=== PATIENT | female | born 1945 | race Caucasian/White ===

== ENCOUNTER 2019-07-17 18:22 | Inpatient (IN) ==
[2019-07-17 19:32] LABS: WBC 13.07 X1000 (4.8-10.8)
[2019-07-17 19:33] LABS: BASO# 0.02 X1000 (0.0-0.2); BASO% 0.2 % (0.0-0.8); EOS# 0.01 X1000 (0.0-0.7); EOS% 0.1 % (0.0-10.0); HEMATOCRIT 40.7 % (37.0-47.0); HEMOGLOBIN 13.8 g/dL (12.0-16.0); IMM GRAN# 0.03 X1000 (0.0-0.04); IMM GRAN% 0.2 % (0.0-0.5); LYMPH# 1.06 X1000 (1.2-3.4); LYMPH% 8.1 % (20.5-51.1); MCH 30.9 PG (27-31); MCHC 33.9 g/dL (33-37); MCV 91.1 FL (81-99); MONO# 0.64 X1000 (0.11-0.59); MONO% 4.9 % (1.7-9.3); NEUT# 11.31 X1000 (1.4-6.5); NEUT% 86.5 % (42.2-75.2); PLT 203 X1000 (130-400); RBC 4.47 XMIL (4.2-5.4); RDW 12.5 % (11.5-14.5)
[2019-07-17 19:37] LABS: INR 1.09; PROTIME 14.3 Seconds (11.0-16.0)
--- NOTE | 2019-07-17 19:37 | Diag Imaging Result Doc PS360 ---
EXAM: XRAY HIP UNILATERAL RT INDICATION: fall, pain, immobility TECHNIQUE: 2 views COMPARISON: None. FINDINGS: There is a linear lucency in the intertrochanteric region suggesting a nondisplaced intertrochanteric fracture. No other discrete fracture or dislocation is identified. There are mild degenerative changes at the right hip. The surrounding soft tissues are essentially unremarkable. IMPRESSION: Nondisplaced intertrochanteric fracture as described. Electronically signed by Wood Ramirez 07/17/2019 7:34 PM
--- NOTE | 2019-07-17 19:38 | Diag Imaging Result Doc PS360 ---
EXAM: CHEST-1 VIEW INDICATION: pre-op ? hip fx TECHNIQUE: One view COMPARISON: None. FINDINGS: The lungs appear hyperinflated suggesting COPD. There is mild chronic appearing interstitial thickening bilaterally. The lungs are grossly clear, otherwise. There is no discrete pleural fluid collection or pneumothorax. The cardiomediastinal silhouette and central vasculature are grossly unremarkable. IMPRESSION: Suggestion of COPD and mild interstitial fibrotic change. No definite acute chest pathology. Electronically signed by Wood Ramirez 07/17/2019 7:36 PM
[2019-07-17 19:50] LABS: BANDS 3 % (0-1); LYMPHS 13 % (21-51); MONO 2 % (1-9); SEGS 82 % (42-75)
[2019-07-17] MEDS ORDERED: NORCO-5 PO ONE (19:51)
[2019-07-17 20:16] LABS: AGAP 10; ALB/GLOB RATIO 1.5; ALBUMIN 4.1 g/dL (3.5-5.0); ALKALINE PHOSPHATASE 62 U/L (32-104); BUN 10 mg/dL (8-22); CHLORIDE 97 mmol/L (98-107); COSMO 266; CREATININE 0.5 mg/dL (0.5-0.9); ESTIMATED GFR > 60; GLUCOSE 112 mg/dL (70-104); GOT 14 U/L (10-30); GPT 9 U/L (10-36); POTASSIUM 3.3 mmol/L (3.5-5.1); SODIUM 133 mmol/L (136-145); TCO2 26 mmol/L (25-35); TOTAL BILIRUBIN 0.29 mg/dL (0.20-1.00); TOTAL PROTEIN 6.8 g/dL (6.3-8.3)
--- NOTE | 2019-07-17 22:21 | HISTORY AND PHYSICAL ---
PRIMARY CARE PHYSICIAN: None. CHIEF COMPLAINT: Fall. Right hip pain. HISTORY OF PRESENTING ILLNESS: A 73-year-old female without any significant past medical history presented to the emergency department after patient tripped over coffee table and landed on the floor. She states that she hurt her right hip region. She was brought to the emergency department. She had imaging done which did show a right hip intertrochanteric fracture. Her case was discussed with Orthopedics who recommended admission for further management. At the time of my examination, patient denied any headache, fever, chills, chest pain, shortness of breath, hemoptysis but complained of right hip pain. PAST MEDICAL HISTORY: None. PAST SURGICAL HISTORY: Back surgery, hysterectomy, ALLERGIES: No known drug allergies. CURRENT MEDICATIONS: She does not recall. Nursing staff will reconcile. SOCIAL HISTORY: Fifty pack years history of smoking. No history of alcohol or illicit drug use. FAMILY HISTORY: Positive coronary disease mother. REVIEW OF SYSTEMS: Fourteen point review of systems is as in HPI. Other systems negative. PHYSICAL EXAMINATION: GENERAL: Cooperative, friendly female. She is resting more comfortably now. VITAL SIGNS: Temperature 98.2 degrees, pulse 92, respirations 20, blood pressure 160/76. HEENT: Extraocular movements intact. PERRLA. NECK: No masses. CHEST: Clear to auscultation. CARDIOVASCULAR: Regular rate and rhythm. ABDOMEN: Soft. Positive bowel sounds. EXTREMITY: Right hip tenderness. NEUROLOGIC: She is awake, alert, oriented x3. : No bladder distention. SKIN: Warm. LABORATORIES AND STUDIES: WBC 13.07, hemoglobin 13.8, hematocrit 40.7, platelets 203,000. Sodium 133, , CO2 is 20, BUN is 10, creatinine 0.5, glucose is 112. Hip x-ray shows nondisplaced intertrochanteric fracture of the right hip. ASSESSMENT: This is a 73-year-old female without any significant past medical history who presented to emergency department after she tripped over coffee table and landed on the floor on the right hip region. She was evaluated in the emergency department. She had imaging done which did show a right hip intertrochanteric fracture. Case was discussed with Orthopedics who recommended admission for further management. 1. Right hip intertrochanteric fracture status post mechanical fall. 2. Ongoing tobacco abuse. PLAN: 1. We will admit patient to medical floor with telemetry. 2. Keep patient NPO. Continue with pain control, antiemetics and gentle hydration. 3. We will consult Orthopedics. 4. Counseled patient extensively on smoking cessation. 5. Put patient on DVT prophylaxis SCD. 6. We will continue to follow and reassess. Make further recommendation based on patient's clinical course. cc: Alec Reza MD MTDD
[2019-07-17] MEDS: DILAUDID IV PRN (22:35)
--- NOTE | 2019-07-17 23:27 | EKG Report ---
Test Performed on : 07/17/2019 9:08:24 PM Test Reason : pre-op Blood Pressure : / mmHG Vent. Rate : 091 BPM Atrial Rate : 091 BPM P-R Int : 146 ms QRS Dur : 072 ms QT Int : 376 ms P-R-T Axes : 085 066 073 degrees QTc Int : 462 ms Normal sinus rhythm. Normal ECG No previous ECGs available Confirmed by Navjot PETER, Martín Simeon ([id number]) on 07/18/2019 9:42:32 PM
[2019-07-17 23:35] LABS: URINE SOURCE CATH
--- NOTE | 2019-07-17 23:39 | ORTHOPAEDICS CONSULTATION ---
DATE: 07/17/2019 CHIEF COMPLAINT: Right hip pain. HISTORY: Patient is a pleasant, 73-year-old female who is status post fall while at home earlier today. Patient reports she tripped over a coffee table and landed on the floor. [place] immediate pain and discomfort in her right hip. She presented to the emergency room. X-rays were obtained, reveal right intertrochanteric femur fracture. She denies loss of conscious. ALLERGIES: No known drug allergies. PAST MEDICAL HISTORY: None. PAST SURGICAL HISTORY: Back surgery and hysterectomy. PHYSICAL EXAMINATION: General: Patient is awake, alert, and cooperative with exam. Musculoskeletal: Her cervical spine is nontender to palpation. Bilateral upper extremities nontender to palpation. Nontender range of motion. Her right lower extremity is externally rotated and has tenderness to palpation along the hip. Tenderness to gentle movement. Her calf is soft. She has active dorsiflexion, plantar flexion. The left lower extremity has no palpable deformity and no significant discomfort with gentle movement. IMAGING: X-rays were reviewed and reveal a right intertrochanteric femur fracture. IMPRESSION: Right intertrochanteric femur fracture. PLAN: At this point, I discussed treatment options with the patient and family. At this time, would recommend to proceed with intramedullary nailing right femur. Risks and benefits of surgery explained, including risks of anesthesia, , bleeding, infection, failure to relieve pain, postoperative stiffness, nerve injury, blood clots, and other imponderables. All questions are answered. The patient and family agree with treatment plan. Will plan on proceeding with surgery tomorrow. cc: Endy Paz MD
[2019-07-18 00:52] LABS: BILIRUBIN URINE NEGATIVE (NEGATIVE); BLOOD URINE TRACE (NEGATIVE); COLOR YELLOW; GLUCOSE URINE NEGATIVE (NEGATIVE); KETONE URINE TRACE mg/dL (NEGATIVE); LEUKOCYTES URINE NEGATIVE (NEGATIVE); NITRITE URINE NEGATIVE (NEGATIVE); PROTEIN URINE TRACE mg/dL (NEGATIVE); SP GRAVITY URINE 1.017; TURBIDITY URINE CLEAR (CLEAR); UR EPITHELIAL CELLS <10 /HPF (<10); URINE BACTERIA NEGATIVE /HPF; URINE RBC <10 /HPF (<10); URINE WBC <10 /HPF (<10); UROBILINOGEN URINE 2 mg/dL (NORMAL)
[2019-07-18] MEDS: ZOFRAN IV PRN ×3 (04:29→15:51)
[2019-07-18] MEDS: DILAUDID IV PRN (05:51)
[2019-07-18 05:55] LABS: BASO# 0.01 X1000 (0.0-0.2); BASO% 0.1 % (0.0-0.8); HEMATOCRIT 38.7 % (37.0-47.0); HEMOGLOBIN 12.7 g/dL (12.0-16.0); LYMPH# 1.13 X1000 (1.2-3.4); LYMPH% 12.5 % (20.5-51.1); MCH 30.2 PG (27-31); MCHC 32.8 g/dL (33-37); MCV 92.1 FL (81-99); MONO# 1.01 X1000 (0.11-0.59); MONO% 11.1 % (1.7-9.3); NEUT# 6.92 X1000 (1.4-6.5); NEUT% 76.3 % (42.2-75.2); PLT 184 X1000 (130-400); RDW 12.5 % (11.5-14.5); WBC 9.07 X1000 (4.8-10.8)
[2019-07-18 06:43] LABS: AGAP 9; BUN 13 mg/dL (8-22); CALCIUM 8.8 mg/dL (8.8-10.2); CHLORIDE 98 mmol/L (98-107); COSMO 272; CREATININE 0.6 mg/dL (0.5-0.9); ESTIMATED GFR > 60; GLUCOSE 131 mg/dL (70-104); POTASSIUM 4.7 mmol/L (3.5-5.1); SODIUM 135 mmol/L (136-145); TCO2 28 mmol/L (25-35)
[2019-07-18] MEDS ORDERED: XYLOCAINE-MPF 2% ONE (07:28)
[2019-07-18] MEDS ORDERED: ROBINUL ONE (07:28)
[2019-07-18] MEDS ORDERED: DIPRIVAN 1% ONE (07:30)
[2019-07-18] MEDS ORDERED: ZOFRAN ONE (07:30)
[2019-07-18] MEDS ORDERED: PEPCID ONE ×2 (07:35→07:37)
[2019-07-18] MEDS ORDERED: KEFZOL 1 GM/D5W 1 GM/50 ML IVPB ONE (07:41)
[2019-07-18] MEDS ORDERED: EPHEDRINE ONE (07:58)
[2019-07-18] MEDS ORDERED: SODIUM CHLORIDE 0.9% 10 ML ONE (07:58)
[2019-07-18 08:16] LABS: HEMOGLOBIN A1C 4.9 % (4.8-6.0)
--- NOTE | 2019-07-18 08:49 | EKG Report ---
Test Performed on : 07/18/2019 04:25:42 AM Test Reason : No order in [place] Blood Pressure : / mmHG Vent. Rate : 096 BPM Atrial Rate : 096 BPM P-R Int : 138 ms QRS Dur : 070 ms QT Int : 340 ms P-R-T Axes : 074 066 076 degrees QTc Int : 429 ms Normal sinus rhythm. with sinus arrhythmia. Septal infarct , age undetermined Abnormal ECG When compared with ECG of 17-JUL-2019 21:08, (Unconfirmed) No significant change was found Confirmed by Navjot PETER, Martín Simeon ([id number]) on 07/20/2019 11:05:19 PM
--- NOTE | 2019-07-18 09:27 | OPERATIVE NOTE ---
PROCEDURE DATE: 07/17/2019 PREOPERATIVE DIAGNOSIS: Right intertrochanteric femur fracture. POSTOPERATIVE DIAGNOSIS: Right intertrochanteric femur fracture. PROCEDURE PERFORMED: Intramedullary nailing of the right femur with a Synthes 11 x 320 mm TFN nail. SURGEON: Endy Paz MD. ANESTHESIA: Spinal. IV FLUIDS: Lactated Ringer's 1000 mL. ESTIMATED BLOOD LOSS: 125 mL. COMPLICATIONS: None. INDICATION: The patient is pleasant, 73-year-old female who is 1 day status post fall while at home. She presented to the emergency room. X-rays revealed a radiolucent line along the intertrochanteric region, consistent with a fracture. Given patient's findings, recommendation to proceed with intramedullary nailing was offered. Risks and benefits of surgery were explained including the risks of anesthesia, , bleeding, infection, failure to relieve pain, postoperative stiffness, nerve injury, blood clots, and other imponderables. All questions were answered. Patient and family wished to proceed with surgery. DETAILS OF OPERATION: The patient was taken to the operating room and placed supine on the operating table. After adequate spinal anesthesia was obtained, she placed supine on the fracture table. After confirming good alignment, the right lower extremity was subsequently prepped and draped in the usual sterile fashion. Approximately 3 fingerbreadths proximal to the greater trochanter, a lateral incision was made. Careful dissection was performed through the superficial fascia. Dissection was performed with the Phillips scissors down to the tip of the greater trochanter. A guide pin was then placed along the tip of the greater trochanter and advanced into the intramedullary canal. Had good position in both AP and lateral projections. A starting reamer was then passed. A ball-tip guide pin was then advanced in the intramedullary canal. The length of the nail was determined to be 320 mL. Sequential reaming was conducted up to size 12 mm in preparation for 11 mm diameter nail. An 11 x 320 mm Synthes TFN nail was then advanced. The ball-tipped guide pin was removed. Using the outrigger guide, a guide was placed in the lateral proximal femur. Guide pin was then advanced across the fracture site, in the femoral neck and head. Had good position, confirmed with C-arm visualization. After this had been performed, the lateral cortex was reamed. After confirming good positioning in both AP and lateral projections, the lateral cortex was reamed. An 80 mm helical blade was then advanced. The proximal setscrew was tightened in standard fashion. Using perfect jena technique, one distal locking screw was placed from medial and lateral. The final C-arm visualization showed good alignment of the fracture and good position of the hardware. Wounds were copiously irrigated. Number 1 Vicryl was used to repair the deep fascia in the proximal wound, followed by 2-0 Vicryl in the two proximal wounds, and skin saul in all the wounds. Adaptic, sterile 4 x 4s, ABD pad, and tape were applied to the right lower extremity. Patient tolerated the procedure well and was transferred to the recovery room in stable condition. cc: Endy Paz MD
[2019-07-18] MEDS ORDERED: NS 1,000 ML IV SCH ×2 (13:00)
--- NOTE | 2019-07-18 13:05 | PROGRESS NOTE ---
DATE: 07/18/2019 INTERVAL HISTORY: Patient is status post surgical repair of right hip fracture. Doing well postop. Pain well controlled. No new complaints. No other acute events. REVIEW OF SYSTEMS: Twelve point review of systems negative except as per interval history. LABS: WBC 9.0, hemoglobin 12.7, hematocrit 38.7, platelets 184,000. Sodium 135, initial potassium 3.3, repeat potassium 4.7, glucose 131. VITALS: T-max 98.3 degrees, pulse 95, blood pressure 110/53, O2 saturation 100% on 4 L by nasal cannula. PHYSICAL EXAMINATION: General: No acute distress. Vitals: As above. HEENT: Normocephalic, atraumatic. Moist mucous membranes. No cervical adenopathy. Cardiovascular: Regular rate and rhythm. No murmurs noted. Pulmonary: Clear to auscultation bilaterally. No wheezing, rales, or rhonchi. Abdomen: Soft, nontender, nondistended. Bowel sounds positive. Extremities: Peripheral pulses intact. Right hip bandaged. Neurologic: Cranial nerves grossly intact. No focal deficits found. Psychiatric: Awake, alert, oriented x3. Normal mood and affect. Skin: Bandaged as above. No new rashes or lesions identified. ASSESSMENT AND PLAN: 1. Right hip fracture status post surgical repair by Dr. Paz. Doing well postop. Had low normal O2 sats postop, which were likely anesthesia related. If they continue, we will check a chest x-ray. The patient asymptomatic and lungs sound good. 2. Tobacco abuse. Patient counseled on cessation. 3. Hyponatremia, improving with fluids. Continue IV fluids. 4. Hyponatremia, improved this morning. Continue to monitor and replete as needed. 5. Disposition likely to rehab once bed is obtained.
[2019-07-18] MEDS ORDERED: MORPHINE IV PRN (13:18)
[2019-07-18] MEDS ORDERED: MILK OF MAGNESIA PO PRN (13:18)
[2019-07-18] MEDS ORDERED: OXY IR PO PRN (13:18)
[2019-07-18] MEDS ORDERED: ZOFRAN IV PRN (13:18)
[2019-07-18] MEDS ORDERED: HALDOL IV PRN (13:30)
[2019-07-18] MEDS: TYLENOL PO SCH ×2 (14:00→21:15)
[2019-07-18] MEDS: NS 1,000 ML IV SCH (14:03)
[2019-07-18] MEDS: KEFZOL 1 GM/D5W 1 GM/50 ML IVPB IV SCH (18:10)
[2019-07-18] MEDS: PERIDEX MT SCH (21:15)
[2019-07-18] MEDS: COLACE PO SCH (21:15)
[2019-07-19] MEDS: KEFZOL 1 GM/D5W 1 GM/50 ML IVPB IV SCH (00:35)
[2019-07-19] MEDS: NS 1,000 ML IV SCH (00:36)
[2019-07-19] MEDS: TYLENOL PO SCH ×3 (06:01→20:20)
[2019-07-19] MEDS: XARELTO PO SCH (06:01)
--- NOTE | 2019-07-19 06:53 | ORTHOPAEDICS PROGRESS NOTE ---
DATE: 07/19/2019 SUBJECTIVE: Patient is a 73-year-old female who is 1 day status post intramedullary nailing of the right femur. She is currently resting comfortably. PHYSICAL EXAMINATION: The patient's right lower extremity dressing is intact. Calf is soft. She has active dorsiflexion plantar flexion. She is neurovascularly intact distally. Her labs are pending. IMPRESSION: Postoperative day #1 status post intramedullary nailing of the right femur. PLAN: At this point, the patient we will begin physical therapy with weightbearing as tolerated right lower extremity. Consult adoption social worker for discharge planning. Patient is considering home physical therapy. Will monitor her progress with physical therapy. cc: Endy Paz MD MTDD
[2019-07-19 07:14] LABS: HEMATOCRIT 28.6 % (37.0-47.0); HEMOGLOBIN 9.5 g/dL (12.0-16.0)
[2019-07-19 07:27] LABS: AGAP 7; BUN 7 mg/dL (8-22); CALCIUM 8.8 mg/dL (8.8-10.2); CHLORIDE 100 mmol/L (98-107); COSMO 270; CREATININE 0.4 mg/dL (0.5-0.9); ESTIMATED GFR > 60; GLUCOSE 129 mg/dL (70-104); POTASSIUM 4.7 mmol/L (3.5-5.1); SODIUM 135 mmol/L (136-145); TCO2 28 mmol/L (25-35)
[2019-07-19] MEDS: FERROUS SULFATE PO SCH (10:55)
[2019-07-19] MEDS: PERIDEX MT SCH ×2 (10:55→20:21)
--- NOTE | 2019-07-19 12:09 | PROGRESS NOTE ---
DATE: 07/19/2019 INTERVAL HISTORY: The patient doing well postop. Pain reasonably well controlled. No new complaints. No acute events overnight. REVIEW OF SYSTEMS: Twelve point review of systems negative except as per interval history. LABORATORY: Hemoglobin 9.5, hematocrit 28.6, sodium 135, potassium 4.7, BUN 7, creatinine 0.4, glucose 107 and 129. OBJECTIVE: General: No acute distress. Vitals: As above. HEENT: Normocephalic, atraumatic. Moist mucous membranes. No cervical adenopathy. Cardiovascular: Regular rate and rhythm. No murmurs noted. Pulmonary: Clear to auscultation bilaterally. No wheezing, rales, or rhonchi. Abdomen: Soft, nontender, and nondistended. Bowel sounds positive. Extremities: Peripheral pulses intact. No clubbing or cyanosis. Right hip incisions bandaged. Bandage is clean, dry, intact. Neurologic: Cranial nerves grossly intact. No focal deficits. Psychiatric: Normal mood and affect. Awake, alert, and oriented x3. Skin: No new rashes or lesions identified. Surgical incision bandaged as above. ASSESSMENT AND PLAN: 1. Right hip fracture. The patient is status post surgical repair by Dr. Paz. Doing well postop. Minimal low normal O2 saturations postop, but this has not been repeated. The patient asymptomatic. 2. Tobacco abuse. Patient counseled on cessation. 3. Hyponatremia, minimal and stable. No need for further intervention. 4. Hypokalemia, improved. Monitor. 5. Anemia likely related to expected blood loss during surgery. We will monitor but no need for transfusion currently.
[2019-07-19] MEDS: COLACE PO SCH (20:21)
[2019-07-20] MEDS: TYLENOL PO SCH ×4 (01:18→21:53)
[2019-07-20] MEDS: NS 1,000 ML IV SCH ×2 (01:18→01:19)
[2019-07-20] MEDS: XARELTO PO SCH (05:10)
[2019-07-20 07:05] LABS: HEMATOCRIT 27.3 % (37.0-47.0); HEMOGLOBIN 8.9 g/dL (12.0-16.0)
--- NOTE | 2019-07-20 07:38 | ORTHOPAEDICS PROGRESS NOTE ---
DATE: 07/20/2019 SUBJECTIVE: Ms. Walters is a 73-year-old female who is day 2 status post intramedullary nailing of the right femur. She is currently resting comfortably in bed and is requesting her breakfast. She has no complaints at this time. She states that her pain is currently a 2/10 and that she has not had any problems. Patient states she did well with physical therapy yesterday and walked around the [place] without any complaints of pain. OBJECTIVE: Ms. Walters' dressings are intact on her right lower extremity. I changed these myself this morning and she had no active drainage from the site and no surrounding redness or warmth to suggest a secondary infection at this time. Her calf is soft and she has active dorsiflexion and plantar flexion of her right foot. Sensation is intact to her toes and she was neurovascularly intact distally. She is currently wearing her RAUL hose. LABS: The only labs that are back on her this morning are her H and H which are 8.9 and 27.3. This is a small drop from yesterday of 9.5 and 28.6. Hospitalist is following. IMPRESSION: Postoperative day #2 status post intramedullary nailing of the right femur. PLAN: At this point, Ms. Walters will continue physical therapy with weightbearing as tolerated on her right lower extremity. Paper Plate Machine Tender has already been consulted for discharge planning. She did have a moment of possible atrial fibrillation on telemetry last night and the hospitalist has been made aware of this. This will most likely have to be investigated further prior to discharge home. She is doing well from an Orthopedic standpoint at this point in time. Dictated by BERNARDO Verdin for Endy Paz MD cc: Endy Paz MD [facility]
[2019-07-20] MEDS: PERIDEX MT SCH ×2 (08:28→21:52)
[2019-07-20] MEDS: FERROUS SULFATE PO SCH (08:28)
[2019-07-20 09:12] LABS: AGAP 6; BUN 8 mg/dL (8-22); CALCIUM 8.3 mg/dL (8.8-10.2); CHLORIDE 96 mmol/L (98-107); COSMO 263; CREATININE 0.5 mg/dL (0.5-0.9); ESTIMATED GFR > 60; GLUCOSE 95 mg/dL (70-104); MAGNESIUM 1.5 mg/dL (1.5-2.7); POTASSIUM 3.6 mmol/L (3.5-5.1); SODIUM 132 mmol/L (136-145); TCO2 30 mmol/L (25-35)
--- NOTE | 2019-07-20 09:26 | EKG Report ---
Test Performed on : 07/20/2019 08:52:27 AM Test Reason : afib with RVR Blood Pressure : / mmHG Vent. Rate : 101 BPM Atrial Rate : 101 BPM P-R Int : 130 ms QRS Dur : 070 ms QT Int : 332 ms P-R-T Axes : 084 062 061 degrees QTc Int : 430 ms Sinus tachycardia. Nonspecific T wave abnormality Abnormal ECG When compared with ECG of 18-JUL-2019 04:25, (Unconfirmed) Criteria for Septal infarct are no longer present Nonspecific T wave abnormality now evident in Inferior leads Confirmed by Martín Morfin MD ([id number]) on 07/20/2019 11:09:04 PM
--- NOTE | 2019-07-20 09:36 | Diag Imaging Result Doc PS360 ---
EXAM: CHEST-2 VIEWS HISTORY: copd/afib TECHNIQUE: Two views COMPARISON: 07/17/2019 FINDINGS: The lungs are hyperexpanded. The heart is not enlarged. The vessels are small. There are mild increased markings in the left costophrenic angle. No pleural effusions. IMPRESSION: 1.Severe emphysema 2.Atelectasis versus a tiny infiltrate in the left costophrenic angle Electronically signed by Duong Manuel 07/20/2019 9:34 AM
[2019-07-20] MEDS ORDERED: MAGNESIUM SULFATE 2 GM/S.W.I. 2 GM/50 ML IVPB IV ONE (10:13)
--- NOTE | 2019-07-20 10:49 | PROGRESS NOTE ---
DATE: 07/20/2019 SUBJECTIVE: This morning, Ms. Walters refers to be doing well. Denies any complaint, except for mild pain in the right hip, where she had surgery. I was called early on this morning by the attending nurse that Ms. Walters had been in and out of atrial fibrillation, and that telemetry had called, suggesting that her rhythm was atrial fibrillation. We did an EKG stat, which I have looked at it and it is actually a sinus rhythm with some sinus arrhythmias. Ms. Walters is completely asymptomatic. Her current telemonitoring tracing is normal sinus with occasional sinus arrhythmia. OBJECTIVE: Current Vital Signs: Blood pressure is 132/72, pulse of 92, respirations 18, temperature 98.7 degrees, the patient is saturating 96% on room air. General: Ms. Walters is a 73-year-old female. She is in bed. She is not in any cardiopulmonary distress. HEENT: Mucosa is pink and moist. Anicteric. Acyanotic. Neck: Supple. No JVD. Chest: Air entry is bilaterally reduced. There are no crepitations, no rhonchi. Cardiovascular: Regular rate and rhythm. No murmurs. Abdomen: Soft, nontender. Extremities: No pedal edema. AUTOMOBILE BODY REPAIRER HELPER: The patient is awake, alert, and oriented. Musculoskeletal: The right hip continues to be covered. Per the orthopedic documentation, it looks like the wound is clean with no draining. IMAGING AND LABORATORY DATA: Hemoglobin is 8.9. The patient's current chemistry is unremarkable, except for sodium of 132. Magnesium is 1.5, which has been replaced. The patient's TSH is 1.98. As I said, an EKG just shows normal sinus rhythm with occasional sinus arrhythmias. A chest x-ray this morning shows severe emphysema, atelectasis versus a tiny infiltrate in the left costophrenic angle. The patient is currently afebrile and asymptomatic. MEDICATIONS: I have reviewed her current medications. No changes. Will discontinue the normal saline. ASSESSMENT: 1. Status post mechanical fall, resulting into a right hip nondisplaced intertrochanteric fracture. The patient is status post intramedullary nailing of the right femur. Today is day 3 postoperatively. Orthopedics has been involved. 2. Severe chronic obstructive pulmonary disease on imaging. The patient is currently asymptomatic. She does not use any oxygen at home. She has been advised to continue abstaining from tobacco. 3. Tobacco use and abuse prior to hospitalization. Cessation has been counseled. 4. Normocytic anemia, presumably due to surgery. Hemoglobin and hematocrit are stable. The patient does not need any transfusion at this point. 5. Questionable paroxysmal atrial fibrillation. The patient was alleged to have atrial fibrillation on a telemonitor tracing. However, according to Ms. Walters, she was just moving around, and that might have picked up some irregularities. I have not seen the tracing myself. However, the electrocardiogram that was done this morning is completely unremarkable, and her current tracing on the telemonitor is also unremarkable. She is currently asymptomatic. TSH is normal. Her magnesium has been replaced. We are going to do an echocardiogram to check on the valves. I think if the valves are normal, she can be discharged to follow up with Cardiology as an outpatient. 6. Disposition. Ms Walters herself is requesting to be discharged. She says she misses her pets. From a medical standpoint, I think if her investigations are normal, we can have her discharged. cc: Isiah Peña MD Addendum: I went to Tele and reviewed her strips. She did have periods of AFIB on the traces some with rate of about 120 MTDD
[2019-07-20] MEDS: CARDIZEM PO SCH ×2 (11:50→19:37)
--- NOTE | 2019-07-20 18:50 | ECHO REPORT ---
ORDER DATE: 07/20/2019 MEASUREMENTS: Septal thickness 0.9. Left ventricular internal diameter in diastole 2.6, posterior wall thickness 0.9. Left ventricular internal diameter in systole 1.9, aortic root 2.2, left atrium 2.9. SUMMARY: 1. Technically difficult study due to limited acoustic window quality. 2. Very mild sclerosis of trileaflet aortic valve demonstrated with normal aortic valve opening evident. Peak gradient across aortic valve is approximately 10 mmHg. Mitral and tricuspid valves are without evidence of structural abnormality while pulmonic valve is not well demonstrated. There is mild tricuspid regurgitation. The estimated systolic PA pressure by Doppler is 35 mmHg. The aortic root is normal size. 3. Normal left ventricular dimensions demonstrated. Estimated left ejection fraction appears to be at least 65%. No regional wall motion abnormalities are evident. Doppler suggests grade 1 left ventricular diastolic dysfunction. Left atrium, right atrium, right ventricle are normal size with grossly preserved right ventricular systolic function. 4. No pericardial effusion. 5. Appearance of inferior vena cava suggests normal central venous pressure. cc: MD Isiah Martinez MD
[2019-07-20] MEDS: COLACE PO SCH (21:53)
[2019-07-21] MEDS: CARDIZEM PO SCH ×2 (02:01→08:52)
[2019-07-21] MEDS: TYLENOL PO SCH (06:39)
[2019-07-21] MEDS: XARELTO PO SCH (06:39)
[2019-07-21 06:56] LABS: HEMATOCRIT 26.1 % (37.0-47.0); HEMOGLOBIN 8.6 g/dL (12.0-16.0)
[2019-07-21 07:26] VITALS: BP 118/61
[2019-07-21] MEDS: FERROUS SULFATE PO SCH (08:51)
[2019-07-21] MEDS: PERIDEX MT SCH (08:52)
[2019-07-21] MEDS ORDERED: ELIQUIS PO SCH (09:00)
--- NOTE | 2019-07-22 06:26 | DISCHARGE SUMMARY ---
ADMISSION DATE: 07/17/2019 DISCHARGE DATE: 07/21/2019 DISPOSITION: Home. FOLLOW-UP: 1. [facility]. 2. Dr. Austin. 3. Dr. Paz. CONSULTATION DURING ADMISSION: Orthopedics was consulted. Patient was seen by Dr. Paz. INVASIVE PROCEDURES DONE DURING ADMISSION: Intramedullary nailing of the right femur was done by Dr. Paz on 07/17/2019. IMAGING STUDIES OF SIGNIFICANCE: 1. A chest x-ray shows suggestion of COPD and interstitial fibrotic changes. 2. Hip x-ray did show nondisplaced intertrochanteric fracture. 3. Echocardiogram showed an ejection fraction of 65% with some diastolic dysfunctions. ADMISSION DIAGNOSES: 1. Ongoing tobacco use. 2. Right hip intertrochanteric fracture after mechanical fall. DIAGNOSES AT TIME OF DISCHARGE: 1. Status post mechanical fall resulting into a right intertrochanteric hip fracture. The patient is status post intramedullary nailing of the right femur. 2. Severe chronic obstructive pulmonary disease. 3. Tobacco use and abuse prior to hospitalization. 4. Normocytic anemia. 5. Paroxysmal atrial fibrillation of new diagnosis in the hospital. This got converted on its own to sinus. The patient had a Tutu Vasc score of 2 at least, one for age more than 65 and another one for female. There was question of hypertension which will make it even 3. DISCHARGE MEDICATIONS: 1. Eliquis 5 mg b.i.d. 2. Iron Sulfate 325 p.o. daily. 3. Docusate 200 p.o. at bedtime. 4. Diltiazem 120 p.o. daily. 5. Oxycodone 5 mg q.4 to 6 p.r.n. PRESENTING COMPLAINT: Right hip pain. HISTORY OF PRESENTING COMPLAINT: Ms. Walters is a 73-year-old female who came to the emergency department after she lost her balance and sustained a fall resulting into a trauma to the right hip. She came to the emergency room, and was evaluated. Initial imaging studies did reveal a right nondisplaced intertrochanteric hip fracture. She was admitted for further medical care. HOSPITAL COURSE: Ms. Walters was admitted to the medical floor and was perioperatively evaluated. Orthopedics was consulted. Patient was seen by Dr. Paz. A decision was made for surgical intervention. This was successfully done. Postoperatively, Ms. Walters continues to improve with physical therapy. Pain was under control. Unfortunately, during the hospital course, she was found to be in paroxysmal atrial fibrillation and that was only caught on the telemetry monitoring. Echocardiogram was done which was unremarkable. Ms. Walters Tutu Vasc score was at least 2 so she was started on anticoagulation. Her heart rate got back to normal sinus rhythm and sustained on a good rate. She has been advised therefore to just follow up with Cardiology on outpatient basis. At time of discharge, blood pressure is 118/61, pulse of 92, respirations 18, and temperature is 99.1 degrees. The patient is saturating 95% on room air. All the discharge instructions have been discussed with her. She voiced understanding. Ms. Walters will follow up with Dr. Paz on 08/03/[address] Austin on 08/23/2019. TIME SPENT FOR DISCHARGE: 35 minutes. cc: Isiah Peña MD
== END 2019-07-21 10:59 | disposition home health service (06) | DRG 481 ==
LOC: ED 18:22 → SUATTDRO 21:34 → 4N 21:34
PROVIDERS: ATTEND Internal Medicine